=== PATIENT | male | born 1950 | race Caucasian/White ===

== ENCOUNTER 2017-01-15 20:21 | Emergency (ER) | payer MEDICARE, OTHER ==
[~2017-01-15] VITALS: Ht 188 cm; Wt 100.0 kg
[2017-01-15 20:25] VITALS: BP 163/79; PULSE 99; RESP 16; O2SAT 96
[2017-01-15 21:51] LABS: BASOPHILS % (AUTO) 0.1 % (0-3); EOSINOPHILS % (AUTO) 0 % (0-5); MONOCYTES % (AUTO) 8.6 % (4-12); Mean Corpuscular Volume 89.3 fL (81-100); NEUTROPHILS % (AUTO) 78.7 % (40-74); Platelet Count 192 bil/L (150-400)
[2017-01-15 22:15] LABS: Magnesium 1.9 mg/dL (1.6-2.6)
[2017-01-15 22:36] LABS: APPEARANCE,URINE CLOUDY (CLEAR,HAZY); COLOR,URINE RED (YELLOW); OCCULT BLOOD,URINE LARGE (NEGATIVE); UROBILINOGEN,URINE NORMAL (NORMAL)
--- NOTE | 2017-01-15 23:18 | ED.REPORT ---
HPI-Abd Pain M 40 and Over Date of Service Jan 15, 2017 ED Provider: Greyson Goodwin MD Patient is a 66 year old male with a history of diabetes mellitus and hypertension who presents to the ED complaining of severe right flank pain that began 2 days ago. Patient reports associated hematuria, increased urinary frequency, and nausea. He states that the pain moved around his back after onset , but it never radiated to his abdomen. However, during initial evaluation the patient states that his pain has resolved. Patient denies a history of kidney stones or recent back injury. Patient denies dysuria, vomiting, fever, or chills. Nursing Notes Stated Complaint: LOWER RIGHT QUADRANT PAIN Chief Complaint: Male Abdominal Pain Nursing Notes Reviewed: Yes Allergies: Coded Allergies: No Known Allergies (Unverified , 01/15/17) General Time Seen by MD: 23:16 Chief Complaint Flank pain right Hx Obtained From: Patient Arrived By: Walk-in Sudden in Onset?: No Onset Occurred: 2 days ago Symptom Duration: Since onset Progression since Onset: Resolved Location: : Flank right Quality: Painful Radiation: : Does not radiate Severity: Current: Mild Severity: Maximum: Severe Recent Healthcare: No recent doctor visit, No recent hospitalization Similar Sx Previous: No Past Medical History Past Medical History Reports: Diabetes mellitus, Hypertension Past Surgical History none reported Smoking History Unknown if Ever Smoker Social History Other Social History: Good social support, , Local resident Ambulatory Status Independent Review of Systems GI: Reports: Nausea, Denies: Abdominal pain, Vomiting Male: Reports Flank pain, Reports Hematuria, Reports Urinary urgency, Denies Dysuria Complete sys rev & neg: except as marked. Physical Exam Initial Vital Signs Vital Signs (First) Date Time Temp Pulse Resp B/P Pulse Ox O2 Delivery O2 Flow Rate FiO2 01/15/17 20:25 37.2 99 16 163/79 96 Room Air Initial VS: Reviewed, Vital signs normal Head / Eyes: Atraumatic, Normocephalic, PERRL ENT: Conjunctiva normal, No scleral icterus Neck: Supple, Full range of motion Extremities: No swelling, No tenderness Skin: Warm, Dry, No cyanosis Neurologic: Alert, Oriented, Nonfocal Psychiatric: Mood/affect normal, Behavior normal, Normal thought content General/Constitutional: Awake, Alert, No acute distress, Well appearing Respiratory / Chest: Breath sounds NL, Breath sounds = bilat, No respiratory distress, No rales, No rhonchi, No wheezing Cardiovascular: Heart rate NL, Regular rhythm, Heart sounds NL, No murmurs Abdomen: Soft, Non-tender, No guarding, No rebound Back: No midline vertebral tend, No CVA tenderness Interpretation & Diagnostics Lab Results Interpretation Result Diagram: 01/15/17214001/15/172140 Test 01/15/17 21:41 01/15/17 22:15 White Blood Count 10.4th/mm3 (3.8-10.1) Red Blood Count 5.13mil/mm3 (4.40-5.80) Hemoglobin 15.4g/dL (13.8-17.2) Hematocrit 45.8% (41.0-50.0) Mean Corpuscular Volume 89.3fL (81-100) Mean Corpuscular Hemoglobin 30.0pg (27.0-35.0) Mean Corpuscular Hemoglobin Concent 33.6% (32.0-37.0) Red Cell Distribution Width 13.2% (12.3-15.4) Platelet Count 192bil/L (150-400) Neutrophils (%) (Auto) 78.7% (40-74) Lymphocytes (%) (Auto) 12.4% (14-46) Monocytes (%) (Auto) 8.6% (4-12) Eosinophils (%) (Auto) 0% (0-5) Basophils (%) (Auto) 0.1% (0-3) Sodium Level 135mEq/L (134-144) Potassium Level 4.8mEq/L (3.5-5.2) Chloride Level 96mEq/L (97-108) Carbon Dioxide Level 22mmol/L (18-29) Blood Urea Nitrogen 28mg/dL (8-27) Creatinine 1.15mg/dL (0.76-1.27) Estimat Glomerular Filtration Rate 67mL/min (>59) Glucose Level 176mg/dL (60-99) Calcium Level 9.4mg/dL (8.5-10.1) Magnesium Level 1.9mg/dL (1.6-2.6) Total Bilirubin 1.8mg/dL (0.0-1.2) Aspartate Amino Transf (AST/SGOT) 24U/L (0-50) Alanine Aminotransferase (ALT/SGPT) 22U/L (0-44) Alkaline Phosphatase 71U/L (25-160) Total Protein 7.8g/dL (6.4-8.4) Albumin 4.1g/dL (3.4-5.0) Lipase 17U/L (13-60) Hold Mercer Top Tube Received (Received) Urine Color Red (YELLOW) Urine Appearance Cloudy (CLEAR,HAZY) Urine pH 6.0 (5.0-8.0) Urine Specific [place] 1.025 (1.003-1.035) Urine Protein 30mg/dL (NEG,TRACE) Urine Glucose (UA) Negativemg/dL (NEGATIVE) Urine Ketones 15mg/dL (NEGATIVE) Urine Occult Blood Large (NEGATIVE) Urine Nitrite Negative (NEGATIVE) Urine Bilirubin Negative (NEGATIVE) Urine Urobilinogen Normalmg/dL (NORMAL) Urine Leukocyte Esterase Trace (NEGATIVE) Urine RBC Packed/hpf (0-2) Urine WBC 0-5/hpf (0-5) Urine Epithelial Cells Occasional/hpf (NONE-MOD) Urine Crystals None seen (NONE SEEN) Urine Bacteria None/hpf (NONE-FEW) Urine Hyaline Casts None/lpf (NONE) Urine Granular Casts None seen (NONE SEEN) Urine Waxy Casts None seen (NONE SEEN) Urine Red Blood Cell Casts None seen (NONE SEEN) Urine White Blood Cell Casts None seen (NONE SEEN) Urine Mucus Present (None Seen) Urine Trichomonas None seen (NONE SEEN) Urine Yeast None (NONE SEEN) Urine Culture Reflexed Indicated Lab Results Interpretation: Mildly elevated white count, mildly elevated BUN, mildly elevated nonfasting glucose. Re-Eval/Medical Decision Med Decision/Clinical Course 66-year-old with history consistent with right ureterolithiasis, now passed. He will be discharged home with a strainer. Follow up as needed. Source of Hx: Old records Time of Eval: 23:56 Patient Status: Condition improved Re-Evaluation/Progress Note: Patient is pain free. Discussed lab results and likely kidney stone. He will be given a urine strainer to check for possible stone. Patient understands and agrees with the plan to be discharged home. Discharge instructions and follow-up discussed. All questions were addressed. Return to the ED warnings given. Counseled Regarding: Diagnosis, Lab results, Need for follow-up, When/why to return to ED Discharge & Departure Primary Impression: Right flank pain Disposition: Home Vital Signs - All Vital Signs Date Time Temp Pulse Resp B/P Pulse Ox O2 Delivery O2 Flow Rate FiO2 01/16/17 00:08 89 162/82 100 Room Air 01/15/17 20:25 37.2 99 16 163/79 96 Room Air )( All Prior VS Reviewed: Yes Condition: Stable Patient Instructions: Renal Colic (ED) Additional Instructions: You likely had a right-sided kidney stone which has now passed. Strain your urine to verify this. Drink plenty of fluids. Tylenol and/or ibuprofen as needed. Call me at [phone] between the hours of 9 PM and 6 AM the next couple nights if you have any questions or concerns. Referrals: Tomeka Camara MD (PCP) Scribe Attestation Portions of this note were transcribed by Alisia Mitchell. I, Dr. Goodwin personally performed the history, physical exam and medical decision-making; I reviewed and confirmed the accuracy of the information in the transcribed note. Signed by: Renetta Cantu, 01/16/2017 0017 copies to: Tomeka Camara MD, Howard L MD Jan 15, 2017 23:18 Alisia Mitchell Jan 15, 2017 23:48
[2017-01-16 00:08] VITALS: BP 162/82; PULSE 89; O2SAT 100
== END 2017-01-16 00:09 | disposition home or self-care (01) ==
LOC: SED 20:21
DX: R10.31 Right lower quadrant pain (principal); R31.9 Hematuria, unspecified; R35.0 Frequency of micturition; R11.0 Nausea; E11.9 Type 2 diabetes mellitus without complications; I10 Essential (primary) hypertension